=== PATIENT | male | born 1965 | race Caucasian/White ===

== ENCOUNTER 2018-02-14 11:40 | Day surgery (SDC) | payer MEDICAID ==
[2018-02-09 13:45] VITALS: BMI 36.0
[2018-02-14] MEDS ORDERED: Iohexol 240 (50 ml) ONE (12:46)
[2018-02-14] MEDS ORDERED: Lidocaine 2% Jelly (Uro-Jet) ONE (12:46)
[2018-02-14] MEDS ORDERED: Ciprofloxacin 400mg/200ml D5W 0 MG/0 ML BAG IVPB ONE (12:46)
[2018-02-14] MEDS ORDERED: cefTRIAXone 1 gm 1 GM/100 ML BAG IVPB ONE (13:02)
[2018-02-14] MEDS ORDERED: HYDROmorphone 0.5 mg/0.5 ml ISec IVP PRN (14:14)
[2018-02-14] MEDS ORDERED: Propofol 10 mg/ml Inj (20 ML) ONE ×2 (14:29→14:40)
[2018-02-14] MEDS ORDERED: Midazolam 2 MG/2 ML VIAL ONE (14:29)
[2018-02-14] MEDS ORDERED: Lactated Ringer's 1,000 ML IV ONE (15:45)
[2018-02-14 16:38] VITALS: RESP 16
--- NOTE | 2018-02-14 16:51 | RAD ---
Date of service: 02/14/2018 HISTORY: RT RENAL CALCULI COMPARISON: Abdomen KUB 01/03/2017. FINDINGS: BOWEL: Plate radiography demonstrates surgical clips in the right upper quadrant abdomen but no additional abnormal radiodensities throughout the visualized abdomen. Bowel gas pattern appears nonobstructive with recurrent pattern of moderately prominent retained fecal material in the proximal greater than distal large bowel. Subsequent imaging demonstrates performance of retrograde ureteric nephrographic bilaterally with no suspicious filling defect or contrast collection grossly evident. No hydronephrosis is identified. Normal decompression is seen in the final image. No extravasation of iodinated contrast material is identified. The urinary bladder is not fully demonstrated in this exam. BONES: Normal. OTHER FINDINGS: None. IMPRESSION: No suspicious filling defect or contrast collection in the bilateral pelvocaliceal systems and ureters as discussed above. Please see operative report for additional detail.
[2018-02-14 18:01] VITALS: BP 97/60; PULSE 63; TEMP 97.8; O2SAT 97
--- NOTE | 2018-02-15 03:31 | OP ---
Copied To: Jerardo Becerra MD Attending MD: Jerardo Becerra MD PROCEDURE DATE: 02/14/2018 PREOPERATIVE DIAGNOSIS: Renal calculi with gross hematuria. POSTOPERATIVE DIAGNOSIS: Multiple fragments of small stone with hematuria. PROCEDURE: Cystoscopy, bilateral retrograde. DESCRIPTION OF PROCEDURE: While the patient in the lithotomy position and after starting anesthesia, genitalia were prepped and draped in a sterile fashion. The patient was given Cipro 400 IV piggyback. Cystoscopy was done, which revealed the urethra normal, moderate prostatic hypertrophy causing partial obstruction. The bladder itself revealed no evidence of any tumor. There were multiple yellowish crystals with small stone floating in the bladder and some of those stones coming from the right ureter. Attempt to remove them was difficult because they are small. Retrograde pyelogram revealed dilated right ureter, but no evidence of any filling defect. There were clips and possible small stone on the right upper quadrant most likely due to gallbladder surgery. The left retrograde revealed no evidence of any obstruction and normal calyceal cyst. The patient tolerated the procedure well. Films were taken. After removing the scope and taking x-ray, the patient was transferred to the recovery room in stable condition. Blood loss zero. The patient will be giving Urocit-K and Zyloprim to dissolve any uric acid stone. Jerardo Becerra MD
--- NOTE | 2018-02-15 08:01 | RAD ---
COMPARISON: None PROCEDURE: HISTORY: As Above TECHNIQUE: Total fluoroscopic time utilized during the procedure: 35.5 seconds. Total dose 1.94 mGy cm squared FINDINGS: Submitted images from the current procedure: 5 seconds Please refer to the physician's notes performing the procedure. IMPRESSION: Less than 1 hour fluoroscopic time utilized during performance of the procedure
== END 2018-02-14 19:07 | disposition home or self-care (01) ==
LOC: C.SDS 11:40
PROVIDERS: ATTEND Specialist
DX: N20.0 Calculus of kidney (principal); R31.0 Gross hematuria
CPT/HCPCS: 52005; 74018; J0696; J7120